=== PATIENT | female | born 1995 | race African-American/Black ===

== ENCOUNTER 2017-01-20 13:46 | Emergency (ER) | payer SELFPAY ==
[2017-01-20 14:15] VITALS: BP 129/64; PULSE 84; RESP 20; TEMP 98.4; O2SAT 100
--- NOTE | 2017-01-20 14:27 | PD ---
HPI Chief Complaint: psychiatric evaluation Time Seen by Provider: 14:22 Travel History International Travel<30 days: No Contact w/Intl Traveler<30days: No History of Present Illness HPI 21-year-old female presents to the emergency Department under [place] act by local police for suicidal ideation. Patient states she has felt depressed since she was 8 years old. She states that she is from [facility]. However, she turned herself in on a warrant and that is why she is here in [place]. She got out of penitentiary 2 days ago. She states she has no place to live and has been living on the streets. She states that her suicidal ideation has increased over the past 2 days. She reports a plan to overdose on pills. Patient does states she has a previous suicide attempt in the past. Patient reports history of bipolar disorder. She was on Prozac and Wellbutrin, but hasn 't taken them for 2 years. Patient denies any attempt at this time to hurt herself st this time. Patient denies . She complains of a toothache, has no other medical complaints at this time. Patient does state that she injected Dilaudid 2 days ago because "a girl told me to". She denies any IV drug use since. She also admits to smoking marijuana. [facility] Social History Alcohol Use: Yes (IV dilaudid and marijuana) Tobacco Use: Yes Substance Use: Yes Allergies-Medications (Allergen,Severity, Reaction): Coded Allergies: No Known Allergies (Unverified , 01/20/17) Reported Meds & Prescriptions Reported Meds & Active Scripts Active No Active Prescriptions or Reported Medications Review of Systems Except as stated in HPI: all other systems reviewed are Neg Physical Exam Narrative GENERAL: Well-nourished, well-developed female patient, ambulatory. Afebrile. SKIN: Focused skin assessment warm/dry. HEAD: Normocephalic. Atraumatic. ENT: Mucosa pink and moist. No erythema or exudates. No uvular edema. No uvular , palatal, or tonsillar deviation. Airway patent. Nasal turbinates appear normal without nasal blood, purulent drainage or septal hematoma. Bilateral tympanic membranes are clear without erythema or perforation. Back right molar is chipped. No evidence of dental abscess. EYES: No scleral icterus. No injection or drainage. NECK: Supple, trachea midline. No JVD or lymphadenopathy. CARDIOVASCULAR: Regular rate and rhythm without murmurs, gallops, or rubs. RESPIRATORY: Breath sounds equal bilaterally. No accessory muscle use. Lungs sounds are clear to auscultation. GASTROINTESTINAL: Abdomen soft, non-tender, nondistended. MUSCULOSKELETAL: No cyanosis, or edema. PSYCHIATRIC: No delusional thought processes. No hallucinations. Data Data Last Documented VS Vital Signs Date Time Temp Pulse Resp B/P Pulse Ox O2 Delivery O2 Flow Rate FiO2 01/20/17 16:35 99.1 85 16 120/72 98 Room Air Orders Complete Blood Count With Diff (01/20/17 14:21) Comprehensive Metabolic Panel (01/20/17 14:21) Ed Urine Pregnancytest Poc (01/20/17 14:21) Psych Screen (01/20/17 14:21) Drug Screen, Random Urine (01/20/17 14:21) Alcohol (Ethanol) (01/20/17 14:21) Salicylates (Aspirin) (01/20/17 14:21) Tylenol (Acetaminophen) (01/20/17 14:21) Potassium Chloride (Kcl) (01/20/17 16:15) Labs Laboratory Tests Test 01/20/17 01/20/17 14:20 14:30 Urine Opiates Screen NEG Urine Barbiturates Screen NEG Urine Amphetamines Screen NEG Urine Benzodiazepines Screen NEG Urine Cocaine Screen NEG Urine Cannabinoids Screen POS White Blood Count 4.5 TH/MM3 Red Blood Count 4.79 MIL/MM3 Hemoglobin 13.8 GM/DL Hematocrit 40.9 % Mean Corpuscular Volume 85.4 FL Mean Corpuscular Hemoglobin 28.7 PG Mean Corpuscular Hemoglobin 33.6 % Concent Red Cell Distribution Width 13.3 % Platelet Count 206 TH/MM3 Mean Platelet Volume 8.6 FL Neutrophils (%) (Auto) 38.3 % Lymphocytes (%) (Auto) 52.8 % Monocytes (%) (Auto) 7.7 % Eosinophils (%) (Auto) 0.6 % Basophils (%) (Auto) 0.6 % Neutrophils # (Auto) 1.7 TH/MM3 Lymphocytes # (Auto) 2.4 TH/MM3 Monocytes # (Auto) 0.3 TH/MM3 Eosinophils # (Auto) 0.0 TH/MM3 Basophils # (Auto) 0.0 TH/MM3 CBC Comment AUTO DIFF Differential Comment AUTO DIFF CONFIRMED Platelet Estimate NORMAL Platelet Morphology Comment NORMAL Red Cell Morphology Comment NORMAL Sodium Level 143 MEQ/L Potassium Level 3.2 MEQ/L Chloride Level 109 MEQ/L Carbon Dioxide Level 26.6 MEQ/L Anion Gap 7 MEQ/L Blood Urea Nitrogen 4 MG/DL Creatinine 0.56 MG/DL Estimat Glomerular Filtration 164 ML/MIN Rate Random Glucose 75 MG/DL Calcium Level 8.4 MG/DL Total Bilirubin 0.4 MG/DL Aspartate Amino Transf 40 U/L (AST/SGOT) Alanine Aminotransferase 57 U/L (ALT/SGPT) Alkaline Phosphatase 96 U/L Total Protein 6.7 GM/DL Albumin 3.4 GM/DL Salicylates Level LESS THAN 1.7 MG/DL Acetaminophen Level LESS THAN 2.0 MCG/ML Ethyl Alcohol Level LESS THAN 3 MG/DL MDM Medical Decision Making Medical Screen Exam Complete: Yes Emergency Medical Condition: Yes Medical Record Reviewed: Yes Differential Diagnosis Depression versus anxiety versus bipolar disorder Narrative Course 21-year-old female presents to the emergency Department under [place] act by local police for suicidal ideation. CBC, CMP, alcohol level, urine drug screen , acetaminophen level, salicylate level, urine test are ordered and pending. CBC is unremarkable. CMP shows hypokalemia at 3.2, AST 40, ALT 57. Alcohol level is less than 3. UDS is positive for cannabinoids. Acetaminophen level is less than 2.0. Salicylate level is less than 1.7. UPT is negative. Patient is given potassium 20 meq by mouth. Patient is medically cleared for psychiatric screening and disposition. Mental health screening discussed with the patient. Psychiatric screen ordered. Diagnosis Primary Impression: Depression Qualified Code: F32.9 - Depression, unspecified depression type Additional Instructions: Patient is medically cleared for psychiatric screening and disposition. Scripts No Active Prescriptions or Reported Meds Condition: Stable Marcia Waters Jan 20, 2017 14:26
[2017-01-20 14:35] VITALS: BP 129/64; PULSE 84; RESP 18; TEMP 98.4; O2SAT 100
[2017-01-20 15:13] LABS: AUTOMATED NEUTROPHIL # 1.7 TH/MM3 (1.8-7.7); BASOPHIL % 0.6 % (0.0-2.0); EOSINOPHIL % 0.6 % (0.0-4.0); HEMATOCRIT 40.9 % (35.0-46.0); LYMPH % 52.8 % (9.0-44.0); LYMPHOCYTE # 2.4 TH/MM3 (1.0-4.8); MEAN CELL VOLUME 85.4 FL (80.0-100.0); MEAN CORPUSCULAR HEMOGLOBIN 28.7 PG (27.0-34.0); MEAN CORPUSCULAR HGB CONC 33.6 % (32.0-36.0); MONO % 7.7 % (0.0-8.0); NEUT % 38.3 % (16.0-70.0); PLATELET COUNT 206 TH/MM3 (150-450); RED BLOOD COUNT 4.79 MIL/MM3 (4.00-5.30); RED CELL DISTRIBUTION WIDTH 13.3 % (11.6-17.2); WHITE BLOOD COUNT 4.5 TH/MM3 (4.0-11.0)
[2017-01-20 15:15] LABS: HEMO FLAGS AUTO DIFF
[2017-01-20 15:34] LABS: AMPHETAMINE, URINE NEG (NEG); BARBITURATES, URINE NEG (NEG); COCAINE, URINE NEG (NEG)
[2017-01-20 15:41] LABS: ANION GAP 7 MEQ/L (5-15); AST (GOT) 40 U/L (15-37); BICARBONATE 26.6 MEQ/L (21.0-32.0); BLOOD UREA NITROGEN 4 MG/DL (7-18); CHLORIDE 109 MEQ/L (98-107); GLOMERULAR FILTRATION RATE 164 ML/MIN (>89); POTASSIUM 3.2 MEQ/L (3.5-5.1); SODIUM (NA) 143 MEQ/L (136-145)
[2017-01-20 15:44] LABS: ALKALINE PHOSPHATASE 96 U/L (45-117); ALT (GPT) 57 U/L (10-53); TOTAL BILIRUBIN ADULT 0.4 MG/DL (0.2-1.0)
[2017-01-20 15:46] LABS: ACETAMINOPHEN LESS THAN 2.0 MCG/ML (10.0-30.0)
[2017-01-20 15:48] LABS: PLATELET ESTIMATE SMEAR NORMAL (NORMAL); PLATELET MORPHOLOGY NORMAL (NORMAL); SCAN/DIFF AUTO DIFF CONFIRMED
[2017-01-20] MEDS ORDERED: POTASSIUM CHLORIDE 20 MEQ CONTROLLED RELEASE TAB PO ONE (16:15)
[2017-01-20 16:35] VITALS: BP 120/72; PULSE 85; RESP 16; TEMP 99.1; O2SAT 98
[2017-01-20 21:58] VITALS: BP 108/57; PULSE 57; RESP 18; O2SAT 99
== END 2017-01-21 03:53 ==
LOC: NEPE 13:46 → NEPJ 01-21 03:53
DX: F32.9 Major depressive disorder, single episode, unspecified (principal); R45.851 Suicidal ideations; F31.9 Bipolar disorder, unspecified; Z72.0 Tobacco use
CPT/HCPCS: 80053; 80307; 84703; 85025; 99285